=== PATIENT | female | born 1975 | race Caucasian/White ===

== ENCOUNTER 2023-10-26 03:10 | Day surgery (SDC) | payer OTHER, SELFPAY ==
[2023-10-10 14:14] VITALS: BMI 29.9
--- NOTE | 2023-10-24 09:33 | SUR.PREOP ---
Patient called regarding upcoming procedure. Reviewed preop instructions, appointment times, and procedure prep.
--- NOTE | 2023-10-25 16:14 | PM.HPGS ---
History of Present Illness History of Present Illness Consent: Risks, benefits, and alternatives have been discussed and questions answered. Patient agrees to proceed with procedure. Chief complaint: neoplasm screening Narrative: Louise Oakes is a 48 year old female Referred for colon cancer screening. Review of Systems Review of Systems: All systems reviewed & are unremarkable except as noted in HPI and below PMFSH Past Medical History Medical History HTN (hypertension) Hyperlipidemia Social History Social History Smoking status: Never smoker Drinks per week: 4 Substance use: never Substance use type: does not use Living arrangements: alone Spiritual care concerns: No Meds Home Medications and Allergies Home Medications Medication Instructions Recorded Confirmed Type atorvastatin 10 mg tablet 10 mg DIRECTED 10/10/23 10/10/23 History fluoxetine 20 mg tablet 20 mg PO DAILY 10/10/23 10/10/23 History norethindrone 1 mg-ethinyl 1.35 tablet PO DIRECTED 10/10/23 10/10/23 History estradiol 35 mcg tablet (Nortrel) phentermine 37.5 mg tablet 37.5 mg 10/10/23 History Exam Const: General: alert Orientation/consciousness: patient oriented x3 Resp: Auscultation: clear to auscultation bilaterally Cardio: Rhythm: regular rhythm GI: GI Palp: Yes Soft to palpation and No Tenderness to palpation present (GI) Neuro: General: patient oriented x3 Assessment and Plan Assessment and plan (1) Colon cancer screening: Code(s): Z12.11 - Encounter for screening for malignant neoplasm of colon Status: Acute Assessment and Plan: Colonoscopy with possible biopsy or polypectomy or cautery or injection of substances.
[2023-10-26 11:48] VITALS: BP 139/91; PULSE 88; RESP 16; TEMP 36.4; O2SAT 100
--- NOTE | 2023-10-26 11:51 | P.PNAN_ITS ---
Anes - Initial Pre Proc Eval Procedure: Operation Date: 10/26/23 13:00 Proposed Procedures p Screening Colonoscopy - Juventino Wayne MD Date/Time: 10/26/23 11:51 Surgeon: Juventino Wayne MD Pre Op Diagnosis: neoplasm screening Patient Data Age: 48 Gender: F Height: 1.65 m Weight: 80.8 kg Last Vital Signs Temp 36.4 C 10/26/23 11:48 Pulse 88 10/26/23 11:48 Resp 16 10/26/23 11:48 BP 139/91 H 10/26/23 11:48 Pulse Ox 100 10/26/23 11:48 O2 Del Method Room Air 10/26/23 11:48 Home Medications Medication Instructions Recorded Confirmed Type atorvastatin 10 mg tablet 10 mg DIRECTED 10/10/23 10/10/23 History fluoxetine 20 mg tablet 20 mg PO DAILY 10/10/23 10/10/23 History norethindrone 1 mg-ethinyl 1.35 tablet PO DIRECTED 10/10/23 10/10/23 History estradiol 35 mcg tablet (Nortrel) phentermine 37.5 mg tablet 37.5 mg 10/10/23 History Patient hx anesthesia problems: none Family hx anesthesia problems: none Results Review: All pre-operative results and documents have been reviewed as part of the pre- operative evaluation. [facility] Past Medical History Medical History (Updated 10/26/23 @ 11:52 by Adrian Squires MD) HTN (hypertension) Hyperlipidemia Social History Social History Smoking status: Never smoker Drinks per week: 4 Substance use: never Substance use type: does not use Living arrangements: alone Spiritual care concerns: No Anes - Eval Final PreProcedure Day of Procedure 10/26/23 11:51 Patient weight: overweight Heart: regular rate and rhythm Lungs: clear to auscultation Airway: Mallampati scale class II Neurological: alert and oriented Last oral intake: >/= 8 hours ASA classification: II Emergent: no Anesthetic plan: proceed Anesthesia type and monitoring: general GIVS and standard monitoring Results Review: All pre-operative results and documents have been reviewed as part of the pre- operative evaluation. Informed Consent: The patient's anesthetic plan and its attendant risks and benefits were discussed with the patient/family/POA. Questions were solicited and answers provided to the satisfaction of the patient/family/POA.
[2023-10-26] MEDS: LACTATED RINGERS 1,000 ML 150 ML IV CONT (11:59)
[2023-10-26 13:01] VITALS: BP 123/81; PULSE 96; RESP 23; O2SAT 100
[2023-10-26 13:11] VITALS: BP 118/89; PULSE 68; RESP 15; O2SAT 98
[2023-10-26 13:21] VITALS: BP 136/90; PULSE 67; RESP 18; O2SAT 100
== END 2023-10-26 13:30 | disposition home or self-care (01) ==
PROVIDERS: PCP Internal Medicine; Visit Provider Internal Medicine Gastroenterology
PROC: 0DJD8ZZ Inspection of Lower Intestinal Tract, Via Natural or Artificial Opening Endoscopic (ICD-10-PCS; CPT 45378; principal; 2023-10-26 13:00)
DX: Z12.11 Encounter for screening for malignant neoplasm of colon (principal); K57.30 Diverticulosis of large intestine without perforation or abscess without bleeding; I10 Essential (primary) hypertension; E78.5 Hyperlipidemia, unspecified
CPT/HCPCS: 45378; J2704; J7120

== ENCOUNTER 2025-05-31 11:42 | Emergency (ER) | payer OTHER, SELFPAY ==
--- NOTE | ~2025-05-31 | XR_ITS ---
AP view of the pelvis and AP and lateral views of the right hip Clinical history: Pain Findings: No acute fracture or dislocation is seen. Osseous alignment is anatomic. Bilateral hip and SI joint spaces are preserved. Soft tissues are unremarkable. Impression: No significant abnormality is seen. Reviewed, dictated and finalized at location . Impression: No significant abnormality is seen.
[2025-05-31 11:52] VITALS: BP 118/82; PULSE 91; RESP 16; TEMP 36.8; O2SAT 99
--- NOTE | 2025-05-31 11:59 | ED_ITS ---
HPI - Fall General Chief Complaint: Fall Stated Complaint: fall Time Seen by Provider: 05/31/25 11:55 Source: patient and RN notes reviewed Mode of arrival: ambulatory Limitations: no limitations History of Present Illness HPI Narrative: 50-year-old female presents Express Care complaining of fall yesterday. Patient says she takes a tripped over lawn chair and fell on the right side onto her right hip. Patient says she heard a pop in her hip. Patient denies any in her head, loss of consciousness, neck pain, back pain, numbness or tingling, weakness, or any other injuries. Patient denies any headaches, vision changes, dizziness, lightheadedness, or any other symptoms. Patient was able to get up and ambulate and bear weight on her right hip after the injury. Patient denies any shortening or abnormal rotation of of her right hip. Patient reports certain movements of her right hip cause pain. Patient has been taking Tylenol to help with the pain, she rates the pain a 4/10 describes as achy sensation. Patient denies any significant past medical problems. Related Data Home Medications ?Medication ?Instructions ?Recorded ?Confirmed ?Last Taken ?Type atorvastatin 10 mg tablet 10 mg PO DIRECTED 10/10/23 10/10/23 Unknown History fluoxetine 20 mg tablet 20 mg PO DAILY 10/10/23 10/10/23 Unknown History norethindrone 1 mg-ethinyl 1.35 tablet PO DIRECTED 10/10/23 10/10/23 Unknown History estradiol 35 mcg tablet (Nortrel) tirzepatide (weight loss) 7.5 mg subcut 05/31/25 Unknown History mg/0.5 mL subcutaneous pen injector (Zepbound) Allergies Allergy/AdvReac Type Severity Reaction Status Date / Time No Known Allergies Allergy Verified 05/31/25 11:49 Review of Systems Review of Systems: CONSTITUTIONAL: Denies fever, chills, or sweats. EYES: Denies visual changes, blurry vision, double vision, redness, or discharge. ENT: Denies rhinorrhea, congestion, sore throat, or otalgia. CARDIOVASCULAR: Denies chest pain, palpitations, dizziness, lightheadedness, or edema. RESPIRATORY: Denies cough or dyspnea. GASTROINTESTINAL: Denies abdominal pain, nausea, vomiting, or diarrhea. GENITOURINARY: Denies dysuria or hematuria. SKIN: Denies rash, wound, or itching. MUSCULOSKELETAL: Denies back pain, joint pain, or myalgia. Positive for right hip pain. NEUROLOGIC: Denies headache, seizures, loss of consciousness, numbness, or weakness. PSYCHIATRIC: Denies anxiety or depression. All other systems reviewed are negative, except as documented in HPI. [facility] Past Medical History Medical History Hyperlipidemia HTN (hypertension) Social History Social History Smoking status: Never smoker Drinks per week: 4 Substance use: never Substance use type: does not use Living arrangements: alone Spiritual care concerns: No Comments At the time of my signature, I reviewed and agree with the nursing past medical, surgical, social, and family history. There is no relevant family history pertinent to the patient complaint. Exam Narrative: GENERAL: This is a well-nourished, well-developed adult, in no apparent distress. They are non ill-appearing, nontoxic appearing. HEAD: normocephalic, atraumatic. EYES: Sclera clear/white. Vision is grossly intact. Conjunctiva normal. Extraocular movement intact. Pupils PERRLA. EARS: External ears normal Hearing grossly intact. NOSE: External nose normal THROAT: Mucous membranes moist NECK: Neck supple CARDIOVASCULAR: Regular rate and rhythm RESPIRATORY: Respiratory rate normal, respiratory effort nonlabored, no respiratory distress NEURO: awake, alert, and oriented to person, place and time. There were no obv ious focal neurologic abnormalities. EXTREMITIES: Right hip: No pelvic instability. No obvious deformity, injury, swelling, bruising, redness. Mild tenderness through full range of motion. No bony tenderness. Capillary refill less than 3 seconds. Normal sensation. Neurovascular status intact distal injury. No shortening or rotation. BACK: Nontender without deformity. Course Course Emergency Course: Portions of this record may have been created with voice recognition software Level of Care: Express Care Visit Vital Signs Vital signs: Vital Signs Temperature 98.2 F 05/31/25 11:52 Pulse Rate 91 05/31/25 11:52 Respiratory Rate 16 05/31/25 11:52 Blood Pressure 118/82 05/31/25 11:52 Pulse Oximetry 99 05/31/25 11:52 Oxygen Delivery Room Air 07/20/25 11:52 Temperature 98.2 F 05/31/25 11:52 Pulse Rate 91 05/31/25 11:52 Respiratory Rate 16 05/31/25 11:52 Blood Pressure 118/82 05/31/25 11:52 Pulse Oximetry 99 05/31/25 11:52 Oxygen Delivery Room Air 05/31/25 11:52 Reviewed MDM - Fall MDM Narrative Medical decision making narrative: X-ray right hip and pelvis show no evidence of acute fractures or findings. Likely hip contusion. Discussed physical exam findings. Advised supportive measures and signs/symptoms to go to the ER. Pt is appropriate for outpt treatment and f/u. Differential Diagnosis Differential diagnosis: Likely other (Pelvis fracture, femur fracture, hip contusion, hip dislocation) Critical Care Time Critical Care Time Critical Care Time: No Discharge Plan Discharge Clinical Impression: Fall Qualifiers: Encounter type: initial encounter Qualified Code(s): W19.XXXA - Unspecified fall, initial encounter Contusion of hip, right Qualifiers: Encounter type: initial encounter Qualified Code(s): S70.01XA - Contusion of right hip, initial encounter Patient Disposition: Home Condition: Stable Instructions: Hip Contusion (ED) Additional Instructions: The x-ray of your right hip and pelvis were negative for any fracture or acute findings. Rest and elevate the leg; bear weight as tolerated Apply ice 15-20 minute intervals several times a day Motrin 600mg -800mg every 8 hours, alternate with Tylenol 1000mg every 8 hours as needed Follow up with your primary care provider as needed in 1-2 weeks especially if pain persist. Go to the ER for developing severe headaches, vision changes, dizziness, lightheadedness, severe pain, loss of consciousness, and other serious concerns. Patient Language: Tuvaluan Prescriptions: No Action Zepbound 7.5 mg/0.5 mL pen injector SUBCUT atorvastatin 10 mg tablet 10 mg PO DIRECTED fluoxetine 20 mg tablet 20 mg PO DAILY Nortrel () 1-35 mg-mcg tablet 1.35 tablet PO DIRECTED Follow-up/Referrals: Don,MD Braydon [Primary Care Provider] - Time of Disposition: 12:17
== END 2025-05-31 12:22 | disposition home or self-care (01) ==
PROVIDERS: PCP Internal Medicine
DX: S70.01XA Contusion of right hip, initial encounter (principal); W18.09XA Striking against other object with subsequent fall, initial encounter; I10 Essential (primary) hypertension; E78.5 Hyperlipidemia, unspecified
CPT/HCPCS: 73502; 99213; G0463